=== PATIENT | female | born 1980 | race Asian ===

== ENCOUNTER 2016-10-27 12:19 | Outpatient (CLI) | payer OTHER | END 2016-10-27 12:20 | disposition home or self-care (01) | DX: Z11.3 Encounter for screening for infections with a predominantly sexual mode of transmission (principal) ==

== ENCOUNTER 2017-02-03 14:31 | Outpatient (CLI) | payer OTHER | END 2017-02-03 14:32 | disposition home or self-care (01) | DX: E01.0 Iodine-deficiency related diffuse (endemic) goiter (principal) ==

== ENCOUNTER 2017-08-27 10:44 | Outpatient (CLI) | payer OTHER ==
--- NOTE | 2017-08-27 14:32 | Ultrasound Report ---
COMPLETE ABDOMINAL ULTRASOUND: 08/27/2017 CLINICAL INDICATION: Elevated liver enzymes. TECHNIQUE: Real-time scanning was performed with entry level account representative static images obtained. FINDINGS: The liver measures 12.9 cm. Hepatic echotexture is normal. No intrahepatic biliary dilatat ion or focal parenchymal lesion is present. The common bile duct measures 6 mm. The gallbladder is no rmal. The visualized pancreas is normal. The kidneys are unremarkable, with the right measuring 12.4 cm, and the left measuring 11.7 cm. The spleen measures 10.1 cm, and demonstrates normal echotexture. An incidental splenule is noted in the splenic hilum. The abdominal aorta is normal in caliber. The inferior vena cava is unremarkable. No free fluid is present. IMPRESSION: NORMAL ABDOMINAL ULTRASOUND. JOB #: [id number] EXT JOB #:[id number]
== END 2017-08-27 10:45 | disposition home or self-care (01) ==
LOC: DI 10:44
PROVIDERS: ATTEND Physician Assistant Medical
DX: R74.8 Abnormal levels of other serum enzymes (principal)
CPT/HCPCS: 76700

== ENCOUNTER 2018-02-15 08:00 | Outpatient (CLI) | payer OTHER | END 2018-02-15 08:01 | disposition home or self-care (01) | LOC: LAB.R 08:00 | PROVIDERS: ATTEND Family Medicine | DX: B37.3 Candidiasis of vulva and vagina (principal) | CPT/HCPCS: 87480; 87510; 87660 ==

== ENCOUNTER 2018-07-18 10:30 | Outpatient (CLI) | payer OTHER | END 2018-07-18 10:31 | disposition home or self-care (01) | LOC: LAB.WCP 10:30 | PROVIDERS: ATTEND Family Medicine | DX: Z79.891 Long term (current) use of opiate analgesic (principal) | CPT/HCPCS: 80307; 80361; 81599 ==

== ENCOUNTER 2019-03-24 12:04 | Outpatient (CLI) | payer OTHER ==
[2019-03-24 18:31] LABS: BASOPHILS % (AUTO) 0.6 %; EOSINOPHILS # (AUTO) 0.2 10^3/uL (0.0-0.7); EOSINOPHILS % (AUTO) 2.3 %; HGB - HEMOGLOBIN 14.4 g/dL (12.0-16.0); LYMPHOCYTES # (AUTO) 2.6 10^3/uL (1.5-3.5); MEAN CORPUSCULAR HEMOGLOBIN 28.6 pg (27.0-31.0); MEAN CORPUSCULAR VOLUME 92.2 fL (81.0-99.0); MEAN PLATELET VOLUME 9.1 fL (7.9-10.8); MONOCYTES # (AUTO) 0.6 10^3/uL (0.0-1.0); MONOCYTES % (AUTO) 8.2 %; NEUTROPHILS # (AUTO) 3.6 10^3/uL (1.5-6.6); NEUTROPHILS % (AUTO) 51.5 %; PLT - PLATELET COUNT 454 10^3/uL (130-450); RED BLOOD COUNT 5.03 10^6/uL (4.20-5.40); RED CELL DISTRIBUTION WIDTH 13.4 % (12.0-15.0); WHITE BLOOD COUNT 7.1 x10^3/uL (4.8-10.8)
[2019-03-24 18:52] LABS: ALBUMIN 4.6 g/dL (3.2-5.5); ALBUMIN/GLOBULIN RATIO 1.4 (1.0-2.2); ALKALINE PHOSPHATASE 60 IU/L (42-121); ALT ALANINE AMINOTRANSFERASE 69 IU/L (10-60); AST ASPARTATE AMINOTRANSFERASE 48 IU/L (10-42); BILIRUBIN,TOTAL 0.8 mg/dL (0.2-1.0); BUN - BLOOD UREA NITROGEN 16 mg/dL (6-20); CALCIUM 10.2 mg/dL (8.5-10.3); CARBON DIOXIDE - CO2 21 mmol/L (21-32); CHLORIDE 103 mmol/L (101-111); CHOL/HDL RATIO 2.8 (<4.4); CHOLESTEROL 152 mg/dL; CREATININE 0.5 mg/dL (0.4-1.0); GFR - MDRD 140 (>89); GLUCOSE 108 mg/dL (70-100); HDL CHOLESTEROL 54 mg/dL; LDL CHOLESTEROL,CALCULATED 67 mg/dL; LDL/HDL RATIO 1.2 (<4.4); SODIUM 139 mmol/L (135-145); VLDL CHOLESTEROL 31 mg/dL
[2019-03-24 18:58] LABS: HB2 TOTAL 15.1 g/dL; HEMOGLOBIN A1C 0.91 g/dL; HEMOGLOBIN A1C % 7.7 % (4.6-6.2)
== END 2019-03-24 12:05 | disposition home or self-care (01) ==
LOC: LAB.WCP 12:04
PROVIDERS: ATTEND Family Medicine
DX: E11.8 Type 2 diabetes mellitus with unspecified complications (principal); E78.5 Hyperlipidemia, unspecified; D47.3 Essential (hemorrhagic) thrombocythemia
CPT/HCPCS: 36415; 80053; 80061; 83036; 83721; 85025

== ENCOUNTER 2019-06-15 11:46 | Outpatient (CLI) | payer OTHER ==
[2019-06-15 19:14] LABS: ALBUMIN 4.7 g/dL (3.2-5.5); ALBUMIN/GLOBULIN RATIO 1.3 (1.0-2.2); ALKALINE PHOSPHATASE 50 IU/L (42-121); ALT ALANINE AMINOTRANSFERASE 29 IU/L (10-60); AST ASPARTATE AMINOTRANSFERASE 21 IU/L (10-42); BILIRUBIN,TOTAL 0.9 mg/dL (0.2-1.0); BUN - BLOOD UREA NITROGEN 14 mg/dL (6-20); CALCIUM 9.8 mg/dL (8.5-10.3); CARBON DIOXIDE - CO2 24 mmol/L (21-32); CHLORIDE 102 mmol/L (101-111); CHOL/HDL RATIO 2.7 (<4.4); CHOLESTEROL 132 mg/dL; CREATININE 0.5 mg/dL (0.4-1.0); GFR - MDRD 140 (>89); GLUCOSE 130 mg/dL (70-100); HDL CHOLESTEROL 49 mg/dL; LDL CHOLESTEROL,CALCULATED 73 mg/dL; LDL/HDL RATIO 1.5 (<4.4); SODIUM 138 mmol/L (135-145); TOTAL PROTEIN 8.3 g/dL (6.7-8.2); VLDL CHOLESTEROL 10 mg/dL
[2019-06-15 19:22] LABS: HB2 TOTAL 13.8 g/dL; HEMOGLOBIN A1C 0.78 g/dL; HEMOGLOBIN A1C % 7.3 % (4.6-6.2)
== END 2019-06-15 23:59 | disposition home or self-care (01) ==
LOC: LAB.WCP 11:46
PROVIDERS: ATTEND Physician Assistant Medical
DX: E11.65 Type 2 diabetes mellitus with hyperglycemia (principal); E11.8 Type 2 diabetes mellitus with unspecified complications; E78.5 Hyperlipidemia, unspecified
CPT/HCPCS: 36415; 80053; 80061; 83036; 83721

== ENCOUNTER 2020-04-04 13:52 | Outpatient (CLI) | payer MEDICAID, OTHER ==
--- NOTE | 2020-04-04 15:24 | XRAY Report ---
Reason: LEFT FOOT PAIN Procedure Date: 04/04/2020 Accession Number: [id number] / [id number] Procedure: WCP - Foot 2 View LT CPT Code: Final Report FULL RESULT: PROCEDURE: Foot 2 View LT INDICATIONS: LEFT FOOT PAIN TECHNIQUE: 2 views of the foot were acquired. COMPARISON: None. FINDINGS: Bones: No displaced fractures or dislocations. Evaluation slightly limited by absence of an oblique projection. No suspicious bony lesions. Soft tissues: There is mild periarticular soft tissue swelling lateral to the fifth metatarsophalangeal joint. IMPRESSION: 1. No definite acute bony abnormality. Reviewed by: Addy Nina MD on 04/04/2020 3:23 PM PDT Approved by: Addy Nina MD on 04/04/2020 3:23 PM PDT Station ID: [id number]
== END 2020-04-04 13:53 | disposition home or self-care (01) ==
LOC: DI.WCP 13:52
PROVIDERS: ATTEND Physician Assistant Medical
DX: M79.672 Pain in left foot (principal)

== ENCOUNTER 2020-04-09 08:00 | Outpatient (CLI) | payer OTHER | END 2020-04-09 23:59 | disposition home or self-care (01) | LOC: LAB.R 08:00 | PROVIDERS: ATTEND Physician Assistant Medical | DX: Z79.891 Long term (current) use of opiate analgesic (principal) | CPT/HCPCS: 80307; 80361; 80365; 81599 ==

== ENCOUNTER 2022-08-11 11:06 | Outpatient (CLI) | payer BC ==
--- NOTE | 2022-08-12 16:24 | Mammography Report ---
BILATERAL DIGITAL SCREENING MAMMOGRAM 3D/2D: 08/11/2022 CLINICAL: Baseline exam. Routine screening. No prior exams were available for comparison. There are scattered areas of fibroglandular density in both breasts (category b / 25%-50% glandular t issue). No significant masses, calcifications, or other findings are seen in either breast. IMPRESSION: NEGATIVE There is no mammographic evidence of malignancy. A 1 year screening mammogram is recommended. Based on the Tyrer Cuzick model (a risk assessment model) the patients lifetime risk is 7.9% and her 10 year risk is 1.0%. According to the ACR, ACS, and NCCN guidelines, an annual breast MRI exam isamar g with mammogram is recommended if the patients lifetime risk is 20% or greater. This exam was interpreted at Station ID: [id number]. NOTE: For mammograms, a report in lay terms will be sent to the patient. Approximately 15% of breast malignancies will not be visualized mammographically. In the management of a palpable breast mass, a negative mammogram must not discourage biopsy of a clinically suspicious lesion. Electronically Signed By: Kiersten ledbetter/[email or web address]:08/11/2022 17:38:06 ACR BI-RADS Category 1: Negative 3341F PARENCHYMAL PATTERN: (A) - The breast(s) demonstrate(s) scattered fibroglandular densities. BI-RADS CATEGORY: (1) - 1 RECOMMENDATION: (ANNUAL) - Recommend routine annual screening mammography. [id number] 1 year screening LATERALITY: (B)
== END 2022-08-11 11:07 | disposition home or self-care (01) ==
LOC: DI.N 11:06
PROVIDERS: ATTEND Nurse Practitioner
DX: Z12.31 Encounter for screening mammogram for malignant neoplasm of breast (principal)

== ENCOUNTER 2023-07-07 19:27 | Emergency (ER) | payer BC ==
[2023-07-07] MEDS ORDERED: HYDROmorphone 1 MG/ML CARPUJECT IM STA (19:58)
[2023-07-07] MEDS ORDERED: HYDROmorphone 1 MG/ML CARPUJECT IVP STA (19:58)
--- NOTE | 2023-07-07 20:06 | ED Physician Documentation ---
History of Present Illness - Stated complaint Stated Complaint: R LEG PX - Chief complaint Chief Complaint: Ext Problem - History obtained from History obtained from: Patient - History of Present Illness Timing: Today Pain level max: 8 Pain level now: 8 - Additonal information Additional information: Patient is a 43-year-old female who presents to the emergency department with right calf pain. She states she was playing soccer tonight and while running she felt a pop in the back of her calf. States swelling and pain worsening. She is on hydrocodone daily for chronic back pain. She has been using crutches since the event. Took a hydrocodone prior to arrival. Review of Systems : denies: Now EGA Neurologic: denies: Headache, Head injury PD PAST MEDICAL HISTORY - Past Medical History Cardiovascular: High cholesterol Respiratory: None Endocrine/Autoimmune: Type 2 diabetes GI: None : None HEENT: None Psych: Anxiety Musculoskeletal: Chronic back pain Derm: Eczema - Past Surgical History Past Surgical History: Yes - Present Medications Home Medications: Ambulatory Orders Medication Instructions Recorded Confirmed Aspirin 1 tab PO QPM 09/06/17 01/24/18 Atorvastatin [Lipitor] 1 tab PO QPM 09/06/17 01/24/18 Cyanocobalamin (Vitamin B-12) 1 cap PO QPM 09/06/17 01/24/18 [Vitamin B-12] Hydrocodone/Acetaminophen 2 tab PO PRN PRN 09/06/17 07/07/23 [Hydrocodone-Acetamin 5-325 mg] Multivitamin [Multivitamins] 1 cap PO DAILY 09/06/17 01/24/18 busPIRone [Buspar] 10 mg PO QPM 09/06/17 01/24/18 glipiZIDE [Glipizide] 5 mg PO QPM 09/06/17 01/24/18 metFORMIN [Glucophage] 2,000 mg PO QPM 09/06/17 01/24/18 Ascorbic Acid [Vitamin C] 500 mg PO DAILY 10/18/17 01/24/18 Ferrous Sulfate 325 mg PO DAILY 10/18/17 01/24/18 oxyCODONE [Roxicodone] 5 - 10 mg PO Q6H PRN #20 tablet 07/07/23 MDD 6 - Allergies Allergies/Adverse Reactions: Allergies Allergy/AdvReac Type Severity Reaction Status Date / Time No Known Drug Allergies Allergy Verified 07/07/23 19:38 - Social History Does the pt smoke?: No Smoking Status: Never smoker Does the pt drink ETOH?: No Does the pt have substance abuse?: No - Immunizations Immunizations are current?: No - POLST Patient has POLST: No PD ED PE NORMAL - Vitals Vital signs reviewed: Yes - General General: Alert and oriented X 3, No acute distress - HEENT HEENT: Moist mucous membranes - Neck Neck: Supple, no meningeal sign - Derm Derm: Warm and dry - Extremities Extremities: Other (Tender to palpation in the posterior right calf. Achilles tendon intact. There is swelling to the mid aspect of the posterior calf. Compartments are soft.) - Neuro Neuro: Alert and oriented X 3 - Psych Psych: Normal mood, Normal affect Results - Vitals Vitals: Vital Signs - 24 hr 07/07/23 07/07/23 07/07/23 19:29 19:38 20:23 Temperature 36.8 C 36.6 C Heart Rate 86 82 Respiratory 20 22 16 Rate Blood Pressure 129/87 H 126/86 H O2 Saturation 97 98 Oxygen O2 Source Room air PD Medical Decision Making - ED course Complexity details: re-evaluated patient, considered differential, d/w patient, d/w family ED course: Patient with what appears to be a right calf strain versus tear. Compartments are soft. No evidence of compartment syndrome. No bony tenderness. Achilles tendon intact. Dilaudid given for pain and pain decreased. Maulik bandage applied for compression, will have her rest, ice, compress and elevate the area. No indication for imaging at this time. Will prescribe pain medication for home. She does take hydrocodone regularly for chronic back pain. We will have her follow-up with her PCP and orthopedics for further care. Patient counseled regarding signs and symptoms for which I believe and urgent re-evaluation would be necessary. Patient with good understanding of and agreement to plan and is comfortable going home at this time This document was made in part using voice recognition software. While efforts are made to proofread this document, sound alike and grammatical errors may occur. Departure - Departure Disposition: 01 Home, Self Care Clinical Impression: Strain of right calf muscle Condition: Good Instructions: ED Strain Muscle Ext Follow-Up: your,doctor in 1 week [Other] Orthopedic Care [Provider Group] Prescriptions: oxyCODONE [Roxicodone] 5 - 10 mg PO Q6H PRN #20 tablet MDD 6 PRN Reason: pain Comments: You appear to have a torn/strained calf muscle. This can take several weeks to heal, potentially up to several months. Physical therapy may be needed as well. Recommend rest, ice the area, compress the area and elevate the area is much as possible. We have prescribed pain medication for breakthrough pain. Please follow-up with your doctor and orthopedics for further care. Please return if you worsen. I am prescribing a short course of narcotic pain medication for you. These are potentially dangerous and addictive medications that should be used carefully. These medications may constipate you. Take an [id number] stool softener (docusate) twice daily with plenty of water while taking these medications. If you go 24 hours without a bowel movement, take [id number] miralax, per package instructions. Do not drink or drive while taking these medications. If you received narcotic or sedating medications while in the emergency department, do not drive for 24 hours. Store this medication in a safe, secure place and out of reach of children. It is a violation of federal law to give or sell this medication to another person or to use in a manner other than prescribed. The ED will not refill narcotic prescriptions, including prescriptions lost or stolen. To dispose of unwanted medications: 1. [facility] [address] in [place] has a medication drop box. They accept prescription medications (in pill form) Wednesday through Wednesday 9:00 a.m. to 5:00 p.m. 2. [facility] [employer] [facility] accepts prescription medications (in pill form only) for disposal year round. Call for more information. 3. Contact the [facility] for the next [facility] sponsored prescription drug collection event. , [phone], or [phone]; Forms: PCP List Discharge Date/Time: 07/07/23 20:23
[2023-07-07 20:26] VITALS: BP 126/86; O2SAT 98
== END 2023-07-07 20:23 | disposition home or self-care (01) ==
LOC: ED 19:27
DX: S86.911A Strain of unspecified muscle(s) and tendon(s) at lower leg level, right leg, initial encounter (principal); X58.XXXA Exposure to other specified factors, initial encounter; Y93.66 Activity, soccer; E11.9 Type 2 diabetes mellitus without complications; Z79.84 Long term (current) use of oral hypoglycemic drugs
CPT/HCPCS: 96372; 99283; J1170